=== PATIENT | female | born 1970 | race Caucasian/White ===

== ENCOUNTER → 2016-12-09 | Outpatient (CLI) | payer OTHER ==
[~2016-12-09] MED LIST: FEXO1TAB27 PO; LEVO25TA2 PO
--- NOTE | 2016-12-09 13:33 | RAD ---
Thoracic spine radiographs History: Upper back pain, no known injury, pain between shoulders, concern for scoliosis. Comparison: None. Findings: AP, lateral, and swimmer's view thoracic spine. There are 12 rib-bearing thoracic type vertebral bodies. No acute fracture or acute malalignment is identified. Paravertebral soft tissue stripe appears preserved. Intervertebral disc heights appear relatively preserved. Degenerative disc disease with some narrowing of disc height can be seen at C5-6 and C6-7. There is mild triphasic scoliosis of the thoracic spine. T1-4 demonstrates levoconvex scoliosis with Hall angle of 18 degrees. T5-7 demonstrates a dextroconvex scoliosis with Hall angle of 11 degrees. T8-12 demonstrates levoconvex curvature with Hall angle of 5 degrees. Impression: 1. Mild triphasic scoliosis of the thoracic spine. 2. Degenerative disc disease at C5-6 and C6-7. 3. No acute osseous traumatic injury identified in the thoracic spine.
== END | disposition home or self-care (01) ==
LOC: DXRADRC 12:35
PROVIDERS: ATTEND Physician Assistant Medical
DX: M50.322 Other cervical disc degeneration at C5-C6 level (principal); M50.323 Other cervical disc degeneration at C6-C7 level; M41.84 Other forms of scoliosis, thoracic region; M54.9 Dorsalgia, unspecified
CPT/HCPCS: 72072

== ENCOUNTER → 2020-07-26 | Outpatient (CLI) | payer OTHER ==
[~2020-07-26] MED LIST changes: -LEVO25TA2 PO; +LEVO25TA55 PO
--- NOTE | 2020-07-26 16:58 | RAD ---
Examination: NASAL BONES 3+V History: TRAUMA TO NASAL BONES FRANCESCA / Comparison/Correlation: None Findings: Total 3 images of the nasal bones were obtained. Slight depression of the left nasal bone is evident. Deformity of the distal right nasal bone is questioned. Bony nasal septum is slightly levoconvex. No significant soft tissue swelling. Impression: Slight depression of the left nasal bone and deformity of the distal right nasal bone which raise question of slightly displaced fractures. Electronically signed by: Darrell Grant MD (07/26/2020 4:55 PM) [facility]
== END ==
LOC: PMG 16:21
PROVIDERS: ATTEND Physician Assistant
DX: M95.0 Acquired deformity of nose (principal); J34.89 Other specified disorders of nose and nasal sinuses
CPT/HCPCS: 70160

== ENCOUNTER → 2021-10-09 | Outpatient (CLI) | payer BC ==
--- NOTE | 2021-10-09 16:55 | RAD ---
Examination: Ultrasound right wrist HISTORY: History of right breast lump COMPARISON: None available Findings/ impression: Ultrasound of the right wrist demonstrates hypoechoic focus measuring 1 cm in the soft tissue in the extensor aspect along the tendons. Differential includes ganglion cyst or giant cell tumor tendon she ath or nodule. Recommend MRI without and with IV contrast for better evaluation. Electronically signed by: Parag Thakur MD (10/09/2021 4:52 PM) [id number]
== END ==
LOC: US 16:04
PROVIDERS: ATTEND Orthopaedic Surgery
DX: R22.31 Localized swelling, mass and lump, right upper limb (principal)
CPT/HCPCS: 76881